=== PATIENT | female | born 1960 | race Caucasian/White ===

== ENCOUNTER 2019-01-13 20:28 | Inpatient (IN) | payer OTHER ==
[~2019-01-13] VITALS: Ht 157.5 cm; Wt 47.7 kg
--- NOTE | 2019-01-13 20:53 | PHYS DOC ---
Past Medical History Past Medical History: Asthma, Depression, GERD Past Surgical History: Cholecystectomy Alcohol Use: Occasionally Drug Use: None Adult General Chief Complaint Chief Complaint: NEAR SYNCOPE HPI HPI Patient is a 58 year old female with history of occasional asthma who presents with your syncopal episode, headache and dizziness. Symptoms happened after working outdoors doing light activity for 45 minutes. Patient reports feeling lightheaded with near syncope. Denies collapse. Falling episode patient did complain of headache described as dull radiating only as mild. Denies chest pain palpitations, shortness of breath. No fevers chills, nausea. Reports chronic bilateral shoulder pain, which is unchanged. Denies neck jaw or back pain. No urinary frequency urgency or burning. Patient is not diabetic. No history of hypoglycemia. No focal neurologic symptoms or deficits. No other acute symptoms or complaints. Prehospital EKG reviewed shows ST elevation in leads V1 through V4 with ST depression. Criteria for LVH present. Heart rate is 75/m, QTC is 432. Review of Systems Review of Systems View symptoms as per history of present illness. All other review symptoms are negative. All other systems were reviewed and found to be within normal limits, except as documented in this note. Current Medications Current Medications Current Medications Medications (Trade) Dose Ordered Sig/Adan Start Time Stop Time Status Last Admin Dose Admin Acetaminophen/ Hydrocodone Bitart (Lortab 5/325) 1 tab 1X ONCE 01/13/19 23:30 01/13/19 23:31 DC 01/13/19 23:37 1 TAB Ceftriaxone Sodium (Rocephin) 1 gm 1X ONCE 01/13/19 22:00 01/13/19 22:01 DC 01/13/19 22:16 1 GM Sodium Chloride 1,000 ml @ 100 mls/hr Q10H 01/13/19 23:30 01/14/19 23:29 Allergies Allergies Allergies Coded Allergies Type Severity Reaction Last Updated Verified No Known Drug Allergies 01/13/19 No Physical Exam Physical Exam Constitutional: Well developed, well nourished, no acute distress, non-toxic appearance. [] HENT: Normocephalic, atraumatic, bilateral external ears normal, oropharynx moist, no oral exudates, nose normal. [] Eyes: PERRLA, EOMI, conjunctiva normal, no discharge. [] Neck: Normal range of motion, no tenderness, supple, no stridor. [] Cardiovascular:Heart rate regular rhythm, no murmur [] Lungs & Thorax: Bilateral breath sounds clear to auscultation [] Abdomen: Bowel sounds normal, soft, no tenderness, no masses, no pulsatile masses. [] Skin: Warm, dry, no erythema, no rash. [] Back: No tenderness, no CVA tenderness. [] Extremities: No tenderness, no cyanosis, no clubbing, ROM intact, no edema. [] Neurologic: Alert and oriented X 3, normal motor function, normal sensory function, no focal deficits noted. [] Psychologic: Affect normal, judgement normal, mood normal. [] Current Patient Data Vital Signs Vital Signs Date Time Temp Pulse Resp B/P (MAP) Pulse Ox O2 Delivery O2 Flow Rate FiO2 01/13/19 23:37 18 98 Room Air 01/13/19 23:33 70 01/13/19 20:28 98.1 186/82 (116) 98.1 Lab Values Laboratory Tests Test 01/13/19 20:30 01/13/19 20:50 White Blood Count 9.1 x10^3/uL (4.0-11.0) Red Blood Count 4.24 x10^6/uL (3.50-5.40) Hemoglobin 13.6 g/dL (12.0-15.5) Hematocrit 38.6 % (36.0-47.0) Mean Corpuscular Volume 91 fL (79-100) Mean Corpuscular Hemoglobin 32 pg (25-35) Mean Corpuscular Hemoglobin Concent 35 g/dL (31-37) Red Cell Distribution Width 13.6 % (11.5-14.5) Platelet Count 355 x10^3/uL (140-400) Neutrophils (%) (Auto) 58 % (31-73) Lymphocytes (%) (Auto) 28 % (24-48) Monocytes (%) (Auto) 11 % (0-9) H Eosinophils (%) (Auto) 2 % (0-3) Basophils (%) (Auto) 1 % (0-3) Neutrophils # (Auto) 5.3 x10^3uL (1.8-7.7) Lymphocytes # (Auto) 2.6 x10^3/uL (1.0-4.8) Monocytes # (Auto) 1.0 x10^3/uL (0.0-1.1) Eosinophils # (Auto) 0.2 x10^3/uL (0.0-0.7) Basophils # (Auto) 0.1 x10^3/uL (0.0-0.2) Sodium Level 132 mmol/L (136-145) L Potassium Level 3.4 mmol/L (3.5-5.1) L Chloride Level 97 mmol/L (98-107) L Carbon Dioxide Level 28 mmol/L (21-32) Anion Gap 7 (6-14) Blood Urea Nitrogen 13 mg/dL (7-20) Creatinine 0.9 mg/dL (0.6-1.0) Estimated GFR (Cockcroft-Gault) 63.9 BUN/Creatinine Ratio 14 (6-20) Glucose Level 127 mg/dL (70-99) H Calcium Level 9.3 mg/dL (8.5-10.1) Total Bilirubin 0.4 mg/dL (0.2-1.0) Aspartate Amino Transferase (AST) 17 U/L (15-37) Alanine Aminotransferase (ALT) 21 U/L (14-59) Alkaline Phosphatase 94 U/L (46-116) Troponin I Quantitative < 0.017 ng/mL (0.000-0.055) Total Protein 6.4 g/dL (6.4-8.2) Albumin 3.8 g/dL (3.4-5.0) Albumin/Globulin Ratio 1.5 (1.0-1.7) Thyroid Stimulating Hormone (TSH) 6.308 uIU/mL (0.358-3.74) H Urine Collection Type Unknown Urine Color Yellow Urine Clarity Clear Urine pH 6.5 Urine Specific [place] 1.010 Urine Protein Negative mg/dL (NEG-TRACE) Urine Glucose (UA) Negative mg/dL (NEG) Urine Ketones (Stick) Negative mg/dL (NEG) Urine Blood Negative (NEG) Urine Nitrite Negative (NEG) Urine Bilirubin Negative (NEG) Urine Urobilinogen Dipstick 0.2 mg/dL (0.2 mg/dL) Urine Leukocyte Esterase Moderate (NEG) Urine RBC 1-2 /HPF (0-2) Urine WBC 1-4 /HPF (0-4) Urine Squamous Epithelial Cells Few /LPF Urine Bacteria 0 /HPF (0-FEW) Urine Hyaline Casts Occasional /HPF Urine Mucus Slight /LPF Laboratory Tests 01/13/19 20:30 Laboratory Tests 01/13/19 20:30 EKG EKG [EKG: reviewed] Radiology/Procedures Radiology/Procedures [CT head: reviewed CXR: NAD] Course & Med Decision Making Course & Med Decision Making Pertinent Labs and Imaging studies reviewed. (See chart for details) [Patient on imaging reviewed. UTI treated. EKG reviewed with bar attendant senior production planner. Will admit to the hospital service. Courtesy bridge orders provided.] Dragon Disclaimer Dragon Disclaimer This electronic medical record was generated, in whole or in part, using a voice recognition dictation system. Departure Departure Impression: Primary Impression: UTI (urinary tract infection) Additional Impressions: Syncope HTN (hypertension) Abnormal EKG Disposition: ADMITTED INPATIENT Condition: GOOD Problem Qualifiers BUTCH FLAHERTY DO Jan 13, 2019 20:53
[2019-01-13 20:58] LABS: BASO # 0.1 x10^3/uL (0.0-0.2); BASO % 1 % (0-3); EOS # 0.2 x10^3/uL (0.0-0.7); EOS % 2 % (0-3); HEMATOCRIT 38.6 % (36.0-47.0); HEMOGLOBIN 13.6 g/dL (12.0-15.5); LYMPH # 2.6 x10^3/uL (1.0-4.8); LYMPH % 28 % (24-48); MEAN CORPUSCULAR HEMOGLOBIN 32 pg (25-35); MEAN CORPUSCULAR HGB CONC 35 g/dL (31-37); MEAN CORPUSCULAR VOLUME 91 fL (79-100); MONO % 11 % (0-9); NEUT # 5.3 x10^3uL (1.8-7.7); NEUT % 58 % (31-73); PLATELET COUNT 355 x10^3/uL (140-400); RED BLOOD COUNT 4.24 x10^6/uL (3.50-5.40); RED CELL DISTRIBUTION WIDTH 13.6 % (11.5-14.5); WHITE BLOOD COUNT 9.1 x10^3/uL (4.0-11.0)
[2019-01-13 21:02] LABS: BILIRUBIN,URINE NEGATIVE (NEG); CLARITY,URINE CLEAR; COLOR,URINE YELLOW; NITRITE,URINE NEGATIVE (NEG); PH,URINE 6.5; PROTEIN,URINE NEGATIVE (NEG-TRACE); UROBILINOGEN,URINE 0.2 mg/dL (0.2 mg/dL)
[2019-01-13 21:03] LABS: CALCIUM 9.3 mg/dL (8.5-10.1); CREATININE 0.9 mg/dL (0.6-1.0); GFR 63.9; POTASSIUM 3.4 mmol/L (3.5-5.1)
[2019-01-13 21:09] LABS: ALBUMIN 3.8 g/dL (3.4-5.0); ALBUMIN/GLOBULIN RATIO 1.5 (1.0-1.7); TOTAL BILIRUBIN 0.4 mg/dL (0.2-1.0); TOTAL PROTEIN 6.4 g/dL (6.4-8.2)
--- NOTE | 2019-01-13 21:16 | RAD ---
EXAM: Chest, single view HISTORY: Dizziness. COMPARISON: None. FINDINGS: A frontal view of the chest is obtained. There is no infiltrate, pleural effusion or pneumothorax. The heart is normal in size. IMPRESSION: No acute pulmonary finding. Electronically signed by: Sandrine Young MD (01/13/2019 9:13 PM) [facility]
[2019-01-13 21:18] LABS: BACTERIA,URINE 0 /HPF (0-FEW); HYALINE CASTS, URINE OCCASIONAL /HPF; SQUAMOUS EPITHELIAL CELL,UR FEW /LPF
--- NOTE | 2019-01-13 21:23 | RAD ---
EXAM: Head CT without contrast. HISTORY: Dizziness. Headache. TECHNIQUE: Computed tomographic images of the head were obtained without contrast. *One or more of the following individualized dose reduction techniques were utilized for this examination: 1. Automated exposure control. 2. Adjustment of the mA and/or kV according to patient size. 3. Use of iterative reconstruction technique. COMPARISON: 03/23/2018. FINDINGS: There is no acute or subacute extra-axial or intraparenchymal hemorrhage. There is no mass effect or midline shift. There is no hydrocephalus. There is a new small focus of hyperdensity within the right butler radiata, the appearance of which favors a small chronic infarct. The guerrero-white matter differentiation pattern is intact. The visualized portions of the orbits, paranasal sinuses and mastoid air cells are unremarkable. No suspicious calvarial lesion is seen. IMPRESSION: 1. No acute intracranial finding. Note is made that MRI is more sensitive for acute infarction. 2. Small focus of hypodensity within the right butler radiata, the appearance of which favors a small chronic infarct. Electronically signed by: Sandrine Young MD (01/13/2019 9:20 PM) [facility]
[2019-01-13] MEDS ORDERED: cefTRIAXone IV Push 1 GM VIAL. IVP ONE (22:00)
[2019-01-13] MEDS ORDERED: HYDROcodone/APAP 5/325MG 1 TAB TABLET PO ONE (23:30)
[2019-01-14] VITALS (7 sets, daily range): BP systolic 141–165; BP diastolic 61–88
--- NOTE | 2019-01-14 00:27 | NUR ---
A 58 Y.O. FEMALE ADMITTED TO [facility], ALERT AND ORIENTED ACCOMPANIED BY . ASSESSMENT COMPLETE, PT AND ORIENTED TO UNIT, STAFF, EXPLAINED PLAN OF CARE. CALL LIGHT IN PLACE WILL CONTINUE TO MONITOR PT STATUS. PMRN
[2019-01-14] MEDS: IV NORMAL SALINE 1000ML BAG 1,000 ML IV SCH ×3 (01:36→21:40)
[2019-01-14] MEDS ORDERED: FLUT9.9S NS (03:00)
[2019-01-14] MEDS ORDERED: PANT20TA2 PO (03:00)
[2019-01-14] MEDS ORDERED: MULT-246 PO (03:00)
[2019-01-14] MEDS ORDERED: MINO100C PO (03:00)
[2019-01-14] MEDS ORDERED: VITA200T6 PO (03:00)
[2019-01-14] MEDS ORDERED: BUPR300T3 PO (03:00)
[2019-01-14] MEDS ORDERED: VENTOLIN HFA18 GM INH (03:00)
[2019-01-14] MEDS ORDERED: OMEG1CAP27 PO (03:00)
[2019-01-14] MEDS ORDERED: MELO7.5T29 PO (03:00)
[2019-01-14 06:24] LABS: ALBUMIN 3.2 g/dL (3.4-5.0); ALBUMIN/GLOBULIN RATIO 1.5 (1.0-1.7); CALCIUM 8.8 mg/dL (8.5-10.1); CREATININE 0.6 mg/dL (0.6-1.0); TOTAL BILIRUBIN 0.2 mg/dL (0.2-1.0); TOTAL PROTEIN 5.4 g/dL (6.4-8.2)
--- NOTE | 2019-01-14 07:13 | EKG ---
[facility] [address] [place] [address] Test Date: 2019-01-13 Test Time: 20:30:23 Pat Name: GIANNI FLOYD Department: Room: Gender: F Technology Assistant: : 1960 Requested By: BUTCH FLAHERTY Order Number: [id number] Reading MD: Measurements Intervals [place] Rate: 65 P: 28 IN: 190 QRS: 41 QRSD: 88 T: 46 QT: 400 QTc: 421 Interpretive Statements SINUS RHYTHM MODERATE AMPLITUDE CRITERIA FOR LVH QRS(T) CONTOUR ABNORMALITY CONSIDER ANTEROLATERAL MYOCARDIAL DAMAGE POSSIBLY ABNORMAL ECG No previous ECG available for comparison
--- NOTE | 2019-01-14 09:53 | PDOC1 ---
History and Physical Date of Admission Date of Admission DATE: 01/14/19 TIME: 09:52 Identification/Chief Complaint Chief Complaint near syncope Source Source: Chart review, Patient History of Present Illness History of Present Illness Ms. Askew ,is a 58 year old female admit s/p near syncope (syncope but was caught her and did not fall) without collapse at an outdoor event. she reports she had not slept well the night before,. it was 90 degrees out and she had "a couple cocktails" and she is not normally a drinker. At the time, she had a headache and dizziness, lightheaded with syncopal event chronic shoulder pain, sees Dr. Partida, had prior asthma EKG in er was concerning, ST change Past Medical History Cardiovascular: No pertinent hx Pulmonary: No pertinent hx Musculoskeletal: low back pain, Osteoarthritis ENT: No pertinent hx Renal/: No pertinent hx Endocrine: No pertinent hx Dermatology: No pertinent hx Past Surgical History Past Surgical History: No pertinent history Social History Smoke: <1 pack per day ALCOHOL: occassional Drugs: None Current Medications Current Medications Current Medications Ceftriaxone Sodium (Rocephin) 1 gm 1X ONCE IVP Last administered on 01/13/19at 22:16; Start 01/13/19 at 22:00; Stop 01/13/19 at 22:01; Status DC Acetaminophen/ Hydrocodone Bitart (Lortab 5/325) 1 tab 1X ONCE PO Last administered on 01/13/19at 23:37; Start 01/13/19 at 23:30; Stop 01/13/19 at 23:31; Status DC Sodium Chloride 1,000 ml @ 100 mls/hr Q10H IV Last administered on 01/14/19at 01:36; Start 01/13/19 at 23:30; Stop 01/14/19 at 23:29 Active Scripts Active Reported Vitamin E (Vitamin E Mixed) 200 Unit Tablet 200 Unit PO DAILY Fish Oil 1,000 Mg Softgel ([place]-3 Fatty Acids/Fish Oil) 1 Each Capsule 1 Each PO DAILY Multi-Vitamin Daily (Multivitamin) 1 Each Tablet 1 Each PO DAILY Ventolin Hfa Inhaler (Albuterol Sulfate) 18 Gm Hfa.aer.ad 2 Puff INH PRN Q4HRS PRN Flonase Allergy Relief (Fluticasone Propionate) 9.9 Ml Hasty.susp 2 Sprays NS DAILY Minocycline Hcl 100 Mg Capsule 100 Mg PO BID Wellbutrin Xl (Bupropion Hcl) 300 Mg Tab.er.24h 300 Mg PO DAILY Meloxicam 7.5 Mg Tablet 7.5 Mg PO DAILY Protonix (Pantoprazole Sodium) 20 Mg Tablet.dr 40 Mg PO DAILY Allergies Allergies: Coded Allergies: No Known Drug Allergies (Unverified , 01/13/19) ROS General: No: Chills, Night Sweats, Fatigue, Malaise, Appetite, Other PSYCHOLOGICAL ROS: YES: Sleep disturbances (night before); No: Anxiety, Behavioral Disorder, Concentration difficultie, Decreased libido, Depression, Disorientation, Hallucinations, Hostility, Irritablity, Memory difficulties, Mood Swings, Obsessive thoughts, Physical abuse, Sexual abuse, Suicidal ideation, Other Eyes: No Blurry vision, No Decreased vision, No Double vision, No Dry eyes, No Excessive tearing, No Eye Pain, No Itchy Eyes, No Loss of vision, No Photophobia, No Scotomata, No Uses contacts, No Uses glasses, No Other Hematological and Lymphatic: No: Bleeding Problems, Blood Clots, Blood Transfusions, Brusing, Night Sweats, Pallor, Swollen Lymph Nodes, Other Respiratory: No: Cough, Hemoptysis, Orthopnea, Pleuritic Pain, Shortness of breath, SOB with excertion, Sputum Changes, Stridor, Tachypnea, Wheezing, Other Cardiovascular: No Chest Pain, No Palpitations, No Orthopnea, No Paroxysmal Noc. Dyspnea, No Edema, No Lt Headedness, No Other Genitourinary: No Dysuria, No Frequency, No Incontinence, No Hematuria, No Retention, No Discharge, No Urgency, No Pain, No Flank Pain, No Other, No , No , No , No , No , No , No Musculoskeletal: No Gait Disturbance, No Joint Pain, No Joint Stiffness, No J oint Swelling, No Muscle Pain, No Muscular Weakness, No Pain In:, No Swelling In:, No Other Neurological: No Behavorial Changes, No Bowel/Bladder ControlChng, No Confusion, No Dizziness, No Gait Disturbance, No Headaches, No Impaired Coord/balance, No Memory Loss, No Numbness/Tingling, No Seizures, No Speech Problems, No Tremors, No Visual Changes, No Weakness, No Other Skin: No Dry Skin, No Eczema, No Hair Changes, No Lumps, No Mole Changes, No Mottling, No Nail Changes, No Pruritus, No Rash, No Skin Lesion Changes, No Other, No Acne Physical Exam General: Alert, Oriented X3, Cooperative, No acute distress HEENT: Atraumatic, PERRLA, Mucous membr. moist/pink Lungs: Clear to auscultation, Normal air movement Heart: S1S2, no gallops, no murmurs Abdomen: Normal bowel sounds, Soft Rectal Exam: not examined Extremities: No cyanosis, No edema, Normal pulses Skin: No breakdown, No significant lesion Neuro: Normal gait, Normal speech, Normal tone, Sensation intact Psych/Mental Status: Mental status NL, Mood NL Vitals Vitals Vital Signs Date Time Temp Pulse Resp B/P (MAP) Pulse Ox O2 Delivery O2 Flow Rate FiO2 01/14/19 07:45 Room Air 01/14/19 07:00 98.4 65 13 149/66 (93) 97 98.4 Labs Labs Laboratory Tests Test 01/13/19 20:30 01/13/19 20:50 01/14/19 02:25 01/14/19 05:15 White Blood Count 9.1 x10^3/uL (4.0-11.0) Red Blood Count 4.24 x10^6/uL (3.50-5.40) Hemoglobin 13.6 g/dL (12.0-15.5) Hematocrit 38.6 % (36.0-47.0) Mean Corpuscular Volume 91 fL (79-100) Mean Corpuscular Hemoglobin 32 pg (25-35) Mean Corpuscular Hemoglobin Concent 35 g/dL (31-37) Red Cell Distribution Width 13.6 % (11.5-14.5) Platelet Count 355 x10^3/uL (140-400) Neutrophils (%) (Auto) 58 % (31-73) Lymphocytes (%) (Auto) 28 % (24-48) Monocytes (%) (Auto) 11 % (0-9) Eosinophils (%) (Auto) 2 % (0-3) Basophils (%) (Auto) 1 % (0-3) Neutrophils # (Auto) 5.3 x10^3uL (1.8-7.7) Lymphocytes # (Auto) 2.6 x10^3/uL (1.0-4.8) Monocytes # (Auto) 1.0 x10^3/uL (0.0-1.1) Eosinophils # (Auto) 0.2 x10^3/uL (0.0-0.7) Basophils # (Auto) 0.1 x10^3/uL (0.0-0.2) Sodium Level 132 mmol/L (136-145) 139 mmol/L (136-145) Potassium Level 3.4 mmol/L (3.5-5.1) 4.0 mmol/L (3.5-5.1) Chloride Level 97 mmol/L (98-107) 103 mmol/L (98-107) Carbon Dioxide Level 28 mmol/L (21-32) 28 mmol/L (21-32) Anion Gap 7 (6-14) 8 (6-14) Blood Urea Nitrogen 13 mg/dL (7-20) 13 mg/dL (7-20) Creatinine 0.9 mg/dL (0.6-1.0) 0.6 mg/dL (0.6-1.0) Estimated GFR (Cockcroft-Gault) 63.9 102.0 BUN/Creatinine Ratio 14 (6-20) 22 (6-20) Glucose Level 127 mg/dL (70-99) 99 mg/dL (70-99) Calcium Level 9.3 mg/dL (8.5-10.1) 8.8 mg/dL (8.5-10.1) Total Bilirubin 0.4 mg/dL (0.2-1.0) 0.2 mg/dL (0.2-1.0) Aspartate Amino Transf (AST/SGOT) 17 U/L (15-37) 18 U/L (15-37) Alanine Aminotransferase (ALT/SGPT) 21 U/L (14-59) 19 U/L (14-59) Alkaline Phosphatase 94 U/L (46-116) 88 U/L (46-116) Troponin I Quantitative < 0.017 ng/mL (0.000-0.055) < 0.017 ng/mL (0.000-0.055) < 0.017 ng/mL (0.000-0.055) Total Protein 6.4 g/dL (6.4-8.2) 5.4 g/dL (6.4-8.2) Albumin 3.8 g/dL (3.4-5.0) 3.2 g/dL (3.4-5.0) Albumin/Globulin Ratio 1.5 (1.0-1.7) 1.5 (1.0-1.7) Thyroid Stimulating Hormone (TSH) 6.308 uIU/mL (0.358-3.74) Urine Collection Type Unknown Urine Color Yellow Urine Clarity Clear Urine pH 6.5 Urine Specific [place] 1.010 Urine Protein Negative mg/dL (NEG-TRACE) Urine Glucose (UA) Negative mg/dL (NEG) Urine Ketones (Stick) Negative mg/dL (NEG) Urine Blood Negative (NEG) Urine Nitrite Negative (NEG) Urine Bilirubin Negative (NEG) Urine Urobilinogen Dipstick 0.2 mg/dL (0.2 mg/dL) Urine Leukocyte Esterase Moderate (NEG) Urine RBC 1-2 /HPF (0-2) Urine WBC 1-4 /HPF (0-4) Urine Squamous Epithelial Cells Few /LPF Urine Bacteria 0 /HPF (0-FEW) Urine Hyaline Casts Occasional /HPF Urine Mucus Slight /LPF Laboratory Tests Test 01/13/19 20:30 01/13/19 20:50 01/14/19 02:25 01/14/19 05:15 White Blood Count 9.1 x10^3/uL (4.0-11.0) Red Blood Count 4.24 x10^6/uL (3.50-5.40) Hemoglobin 13.6 g/dL (12.0-15.5) Hematocrit 38.6 % (36.0-47.0) Mean Corpuscular Volume 91 fL (79-100) Mean Corpuscular Hemoglobin 32 pg (25-35) Mean Corpuscular Hemoglobin Concent 35 g/dL (31-37) Red Cell Distribution Width 13.6 % (11.5-14.5) Platelet Count 355 x10^3/uL (140-400) Neutrophils (%) (Auto) 58 % (31-73) Lymphocytes (%) (Auto) 28 % (24-48) Monocytes (%) (Auto) 11 % (0-9) Eosinophils (%) (Auto) 2 % (0-3) Basophils (%) (Auto) 1 % (0-3) Neutrophils # (Auto) 5.3 x10^3uL (1.8-7.7) Lymphocytes # (Auto) 2.6 x10^3/uL (1.0-4.8) Monocytes # (Auto) 1.0 x10^3/uL (0.0-1.1) Eosinophils # (Auto) 0.2 x10^3/uL (0.0-0.7) Basophils # (Auto) 0.1 x10^3/uL (0.0-0.2) Sodium Level 132 mmol/L (136-145) 139 mmol/L (136-145) Potassium Level 3.4 mmol/L (3.5-5.1) 4.0 mmol/L (3.5-5.1) Chloride Level 97 mmol/L (98-107) 103 mmol/L (98-107) Carbon Dioxide Level 28 mmol/L (21-32) 28 mmol/L (21-32) Anion Gap 7 (6-14) 8 (6-14) Blood Urea Nitrogen 13 mg/dL (7-20) 13 mg/dL (7-20) Creatinine 0.9 mg/dL (0.6-1.0) 0.6 mg/dL (0.6-1.0) Estimated GFR (Cockcroft-Gault) 63.9 102.0 BUN/Creatinine Ratio 14 (6-20) 22 (6-20) Glucose Level 127 mg/dL (70-99) 99 mg/dL (70-99) Calcium Level 9.3 mg/dL (8.5-10.1) 8.8 mg/dL (8.5-10.1) Total Bilirubin 0.4 mg/dL (0.2-1.0) 0.2 mg/dL (0.2-1.0) Aspartate Amino Transf (AST/SGOT) 17 U/L (15-37) 18 U/L (15-37) Alanine Aminotransferase (ALT/SGPT) 21 U/L (14-59) 19 U/L (14-59) Alkaline Phosphatase 94 U/L (46-116) 88 U/L (46-116) Troponin I Quantitative < 0.017 ng/mL (0.000-0.055) < 0.017 ng/mL (0.000-0.055) < 0.017 ng/mL (0.000-0.055) Total Protein 6.4 g/dL (6.4-8.2) 5.4 g/dL (6.4-8.2) Albumin 3.8 g/dL (3.4-5.0) 3.2 g/dL (3.4-5.0) Albumin/Globulin Ratio 1.5 (1.0-1.7) 1.5 (1.0-1.7) Thyroid Stimulating Hormone (TSH) 6.308 uIU/mL (0.358-3.74) Urine Collection Type Unknown Urine Color Yellow Urine Clarity Clear Urine pH 6.5 Urine Specific [place] 1.010 Urine Protein Negative mg/dL (NEG-TRACE) Urine Glucose (UA) Negative mg/dL (NEG) Urine Ketones (Stick) Negative mg/dL (NEG) Urine Blood Negative (NEG) Urine Nitrite Negative (NEG) Urine Bilirubin Negative (NEG) Urine Urobilinogen Dipstick 0.2 mg/dL (0.2 mg/dL) Urine Leukocyte Esterase Moderate (NEG) Urine RBC 1-2 /HPF (0-2) Urine WBC 1-4 /HPF (0-4) Urine Squamous Epithelial Cells Few /LPF Urine Bacteria 0 /HPF (0-FEW) Urine Hyaline Casts Occasional /HPF Urine Mucus Slight /LPF VTE Prophylaxis Ordered VTE Prophylaxis Devices: No VTE Pharmacological Prophylaxi: No Assessment/Plan Assessment/Plan syncope after a few cocktails, not normally a drinker UTI abdnormal EKG, r/o acs echo cardiogram ordered minimal tobacco use, cessation recommended TOMY MADRIGAL MD Jan 14, 2019 09:53
[2019-01-14] MEDS ORDERED: ALBUTEROL SULFATE 2.5 MG/3 ML NEBU. NEB PRN (10:00)
[2019-01-14 10:46] LABS: CHOLESTEROL/HDL RATIO 4.5
--- NOTE | 2019-01-14 11:03 | PDOC2 ---
CARDIAC CONSULT DATE OF CONSULT Date of Consult DATE: 01/14/19 TIME: 10:59 REASON FOR CONSULT Reason for Consult: abnormal EKG, near syncope REFERRING PHYSICIAN Referring Physician: Trace SOURCE Source: Chart review, Patient HISTORY OF PRESENT ILLNESS HISTORY OF PRESENT ILLNESS This ia pleasant 58 yo female admitted for complains of dizziness. Reports that yesterday she was very busy with work and multiple engagements. She attended at a green party and had cocktail drink and some food with cheese/crackers and 45 minutes later standing she started feeling dizzy like she was going to faint without vertigo, no slurred speech or any facial droop, felt sweaty and weak and someone helped her sit and her symptoms lasted about 15 minutes. She was also nauseated at that time but no palpitations but did felt some chest fullness like congestion but none further afterwards. This happened much briefly a while back. No associated tinnitus, unilateral weakness but did started having bifrontal [place] throbbing a little later which lasted overnight. Denies any previous migraine, falls or any injury. No hx of heart disease nor CVA nor arrhythmias. PAST MEDICAL HISTORY Cardiovascular: No pertinent hx Pulmonary: Asthma, Pneumonia CENTRAL NERVOUS SYSTEM: Other (No pertinent history) GI: GERD Heme/Onc: No pertinent hx Hepatobiliary: Cholelithiasis Psych: Anxiety Musculoskeletal: Osteoarthritis Rheumatologic: No pertinent hx Infectious disease: No pertinent hx ENT: No pertinent hx Renal/: No pertinent hx Endocrine: No pertinent hx Dermatology: Other (facial rash better with minocycline) PAST SURGICAL HISTORY Past Surgical History: Cholecystectomy FAMILY HISTORY Family History noncontributory to CV SOCIAL HISTORY Smoke: <1 pack per day (>40 yrs) ALCOHOL: occassional CURRENT MEDICATIONS CURRENT MEDICATIONS Current Medications Medications (Trade) Dose Ordered Sig/Adan Route PRN Reason Start Time Stop Time Status Last Admin Dose Admin Ceftriaxone Sodium (Rocephin) 1 gm 1X ONCE IVP 01/13/19 22:00 01/13/19 22:01 DC 01/13/19 22:16 Acetaminophen/ Hydrocodone Bitart (Lortab 5/325) 1 tab 1X ONCE PO 01/13/19 23:30 01/13/19 23:31 DC 01/13/19 23:37 Sodium Chloride 1,000 ml @ 100 mls/hr Q10H IV 01/13/19 23:30 01/14/19 23:29 01/14/19 01:36 ALLERGIES ALLERGIES: Coded Allergies: No Known Drug Allergies (Unverified , 01/13/19) ROS Review of System 14 point ROS evaluated with pertinent positives noted per HPI PHYSICAL EXAM General: Alert, Oriented X3, Cooperative, No acute distress HEENT: Atraumatic, Mucous membr. moist/pink Lungs: Clear to auscultation, Normal air movement Heart: Regular rate (SR), Normal S1, Normal S2, No murmurs Abdomen: Soft, No tenderness Extremities: No cyanosis, No edema Skin: No breakdown, No significant lesion Neuro: Normal speech, Sensation intact Psych/Mental Status: Mental status NL, Mood NL MUSCULOSKELETAL: Osteoarthritic changes both hands VITALS VITALS Vital Signs Date Time Temp Pulse Resp B/P (MAP) Pulse Ox O2 Delivery O2 Flow Rate FiO2 01/14/19 10:41 98.1 65 16 141/74 (96) 98 Room Air 98.1 LABS Lab: Laboratory Tests Test 01/13/19 20:30 01/13/19 20:50 01/14/19 02:25 01/14/19 05:15 White Blood Count 9.1 x10^3/uL (4.0-11.0) Red Blood Count 4.24 x10^6/uL (3.50-5.40) Hemoglobin 13.6 g/dL (12.0-15.5) Hematocrit 38.6 % (36.0-47.0) Mean Corpuscular Volume 91 fL (79-100) Mean Corpuscular Hemoglobin 32 pg (25-35) Mean Corpuscular Hemoglobin Concent 35 g/dL (31-37) Red Cell Distribution Width 13.6 % (11.5-14.5) Platelet Count 355 x10^3/uL (140-400) Neutrophils (%) (Auto) 58 % (31-73) Lymphocytes (%) (Auto) 28 % (24-48) Monocytes (%) (Auto) 11 % (0-9) Eosinophils (%) (Auto) 2 % (0-3) Basophils (%) (Auto) 1 % (0-3) Neutrophils # (Auto) 5.3 x10^3uL (1.8-7.7) Lymphocytes # (Auto) 2.6 x10^3/uL (1.0-4.8) Monocytes # (Auto) 1.0 x10^3/uL (0.0-1.1) Eosinophils # (Auto) 0.2 x10^3/uL (0.0-0.7) Basophils # (Auto) 0.1 x10^3/uL (0.0-0.2) Sodium Level 132 mmol/L (136-145) 139 mmol/L (136-145) Potassium Level 3.4 mmol/L (3.5-5.1) 4.0 mmol/L (3.5-5.1) Chloride Level 97 mmol/L (98-107) 103 mmol/L (98-107) Carbon Dioxide Level 28 mmol/L (21-32) 28 mmol/L (21-32) Anion Gap 7 (6-14) 8 (6-14) Blood Urea Nitrogen 13 mg/dL (7-20) 13 mg/dL (7-20) Creatinine 0.9 mg/dL (0.6-1.0) 0.6 mg/dL (0.6-1.0) Estimated GFR (Cockcroft-Gault) 63.9 102.0 BUN/Creatinine Ratio 14 (6-20) 22 (6-20) Glucose Level 127 mg/dL (70-99) 99 mg/dL (70-99) Calcium Level 9.3 mg/dL (8.5-10.1) 8.8 mg/dL (8.5-10.1) Total Bilirubin 0.4 mg/dL (0.2-1.0) 0.2 mg/dL (0.2-1.0) Aspartate Amino Transf (AST/SGOT) 17 U/L (15-37) 18 U/L (15-37) Alanine Aminotransferase (ALT/SGPT) 21 U/L (14-59) 19 U/L (14-59) Alkaline Phosphatase 94 U/L (46-116) 88 U/L (46-116) Troponin I Quantitative < 0.017 ng/mL (0.000-0.055) < 0.017 ng/mL (0.000-0.055) < 0.017 ng/mL (0.000-0.055) Total Protein 6.4 g/dL (6.4-8.2) 5.4 g/dL (6.4-8.2) Albumin 3.8 g/dL (3.4-5.0) 3.2 g/dL (3.4-5.0) Albumin/Globulin Ratio 1.5 (1.0-1.7) 1.5 (1.0-1.7) Thyroid Stimulating Hormone (TSH) 6.308 uIU/mL (0.358-3.74) Urine Collection Type Unknown Urine Color Yellow Urine Clarity Clear Urine pH 6.5 Urine Specific [place] 1.010 Urine Protein Negative mg/dL (NEG-TRACE) Urine Glucose (UA) Negative mg/dL (NEG) Urine Ketones (Stick) Negative mg/dL (NEG) Urine Blood Negative (NEG) Urine Nitrite Negative (NEG) Urine Bilirubin Negative (NEG) Urine Urobilinogen Dipstick 0.2 mg/dL (0.2 mg/dL) Urine Leukocyte Esterase Moderate (NEG) Urine RBC 1-2 /HPF (0-2) Urine WBC 1-4 /HPF (0-4) Urine Squamous Epithelial Cells Few /LPF Urine Bacteria 0 /HPF (0-FEW) Urine Hyaline Casts Occasional /HPF Urine Mucus Slight /LPF Triglycerides Level 138 mg/dL (0-150) Cholesterol Level 202 mg/dL (0-200) LDL Cholesterol, Calculated 129 mg/dL (0-100) VLDL Cholesterol, Calculated 28 mg/dL (0-40) Non-HDL Cholesterol Calculated 157 mg/dL (0-129) HDL Cholesterol 45 mg/dL (40-60) Cholesterol/HDL Ratio 4.5 ASSESSMENT/PLAN ASSESSMENT/PLAN 1. Presyncope: could be arrhythmia related. occasional PVC with abnormal EKG with LVH. Biphasix presentation to [facility] 2. Chest pain: trops normal. mixed features. No further recurrence. 3. Possible UTI 4. Tobaccoism with suspected COPD 5. Mild HLP 6. Subclinical hypothyroidism 7. Possible past CVA: incidental finding per CT Recommendations 1. Carotid doppler, TTE. 2. MCOT as an outpt. Will need ischemic workup given her significant risk factors and abnormal EKG, outpt vs inpt, Will discuss with primary educational aide. 3. Encouraged HBPM for further need of HTN meds. 4. Start on ASA and lipitor. 5. Smoking cessation ANUM GUEVARA APRN Jan 14, 2019 11:03
--- NOTE | 2019-01-14 11:54 | EKG ---
[facility] [address] [place] [address] Test Date: 2019-01-14 Test Time: 11:50:47 Pat Name: GIANNI FLOYD Department: Room: 201 1 Gender: F Assistant Production Editor: NADIA : 1960 Requested By: TOMY MADRIGAL Order Number: [id number] Reading MD: Measurements Intervals [place] Rate: 64 P: 64 W[place]: 192 QRS: 66 QRSD: 76 T: 64 QT: 410 QTc: 423 Interpretive Statements SINUS RHYTHM LEFT ATRIAL ABNORMALITY T ABNORMALITY IN ANTEROSEPTAL LEADS ABNORMAL ECG RI6.01 Unconfirmed report No previous ECG available for comparison
--- NOTE | 2019-01-14 12:10 | CARD ---
MR#: [id number] Date of Study: 01/14/2019 Ordering Physician: ANUM GUEVARA, Referring Physician: GINA OLIVIER Tech: Isi Bedolla APPROVED REPORT EXAM: Two-dimensional and M-mode echocardiogram with Doppler and color Doppler. Other Information Quality : GoodHR: 60bpm INDICATION COPD Syncope RISK FACTORS Hypertension Smoking Asthma 2D DIMENSIONS RVDd2.5 (2.9-3.5cm)Left Atrium(2D)2.5 (1.6-4.0cm) IVSd0.8 (0.7-1.1cm)Aortic Root(2D)2.9 (2.0-3.7cm) LVDd4.2 (3.9-5.9cm)LVOT Diameter1.9 (1.8-2.4cm) PWd0.9 (0.7-1.1cm)LVDs2.4 (2.5-4.0cm) FS (%) 43.2 %SV58.7 ml LVEF(%)74.8 (>50%) Aortic Valve AoV Peak Win.141.0cm/sAoV VTI33.3cm AO Peak GR.8.0mmHgLVOT Peak Win.116.3cm/s AO Mean GR.5mmHgAVA (VMAX)2.30cm2 Mitral Valve MV E Yogwnyij84.5cm/sMV DECEL IEMZ462go MV A Jaxkvljf61.7cm/sE/A Ratio1.2 Pulmonary Valve PV Peak Fvftbeod83.7cm/s Tricuspid Valve TR P. Tpgeygsw029yq/sRAP [id number] TR Peak Gr.69qqZeJBXV95gtBw Pulmonary Vein S1 Hsxzpymo44.3cm/sD2 Ehahnwht98.9cm/s PVa [id number] LEFT VENTRICLE The left ventricle is normal size. There is normal left ventricular wall thickness. The left ventricu lar systolic function is normal. The Ejection Fraction is 60-65%. There is normal LV segmental wall m otion. RIGHT VENTRICLE The right ventricle is normal size. There is normal right ventricular wall thickness. The right ventr icular systolic function is normal. ATRIA The left atrium size is normal. The right atrium size is normal. The interatrial septum is intact wit h no evidence for an atrial septal defect or patent foramen ovale as noted on 2-D or Doppler imaging. AORTIC VALVE The aortic valve is normal in structure and function. Doppler and Color Flow revealed no significant aortic regurgitation. There is no significant aortic valvular stenosis. MITRAL VALVE The mitral valve is normal in structure and function. There is no evidence of mitral valve prolapse. There is no mitral valve stenosis. Doppler and Color Flow revealed no mitral valve regurgitation note d. TRICUSPID VALVE The tricuspid valve is normal in structure and function. Doppler and Color Flow revealed trace tricus pid regurgitation with an estimated PAP of 24 mmHg. There is no tricuspid valve stenosis. PULMONIC VALVE The pulmonic valve is not well visualized. Doppler and Color Flow revealed no pulmonic valvular regur gitation. GREAT VESSELS The aortic root is normal in size. The IVC is normal in size and collapses >50% with inspiration. PERICARDIAL EFFUSION There is no evidence of significant pericardial effusion. Critical Notification Critical Value: No <Conclusion> The left ventricular systolic function is normal. The Ejection Fraction is 60-65%. There is normal LV segmental wall motion. Trace tricuspid regurgitation with an estimated PAP of 24 mmHg. There is no evidence of significant pericardial effusion. Signed by : Josr Velazquez, Electronically Approved : 01/14/2019 12:10:06
--- NOTE | 2019-01-14 12:18 | NUR ---
SS following for discharge planning. SS reviewed pt chart. Pt is from home with spouse and is currently on room air. No discharge needs notes at this time. SS will continue to follow for discharge planning.
[2019-01-14] MEDS: MELOXICAM 7.5 MG TABLET PO SCH (12:40)
[2019-01-14] MEDS: PANTOPRAZOLE 40 MG TABLET.DR. PO SCH (12:40)
[2019-01-14] MEDS: MULTIVITAMIN with MINERAL TABLET. PO SCH (12:40)
[2019-01-14] MEDS: ASPIRIN ENTERIC COATED 81 MG TABLET.DR. PO SCH (12:40)
[2019-01-14] MEDS: buPROPion XL 150 MG TAB.ER.24H. PO SCH (12:41)
[2019-01-14] MEDS: FLUTICASONE 50MCG/NASAL SPRAY 16GM BOTTLE. NS SCH (12:42)
--- NOTE | 2019-01-14 15:37 | NUR ---
SS following up on referral regarding "pt wants info on advanced directives." SS met with pt and family in room and provided information on advanced directives. Pt and family accepted information.
--- NOTE | 2019-01-14 16:35 | RAD ---
MR#: [id number] Date of Study: 01/14/2019 Ordering Physician: ANUM GUEVARA, Referring Physician: GINA OLIVIER Tech: Michael Flores MBA, RDMS, RVT, RDCS, RTR APPROVED REPORT Patient Location: IN-PATIENT Laterality:Bilateral Indications Syncope Doppler Spectral Velocity Analysis Right Left pCCA 98/18 cm/spCCA 105/26 cm/s mCCA 77/18 cm/smCCA 106/29 cm/s dCCA 72/18 cm/sdCCA 93/29 cm/s Bulb 58/17 cm/sBulb 74/24 cm/s ECA 71/ cm/sECA 107/ cm/s pICA 140/43 cm/spICA 83/27 cm/s Navjot 125/44 cm/smICA 115/24 cm/s dICA 95/24 cm/sdICA 97/40 cm/s Vert. 67/ cm/sVert. 83/ cm/s Subcl. 72/ cm/sSubcl. 125/ cm/s ICA/CCA 1.43ICA/CCA 1.10 Findings Grayscale images of the bilateral carotid arterial vessels demonstrate mild intimal hyperplasia. Ther e is mild to moderate nonobstructive plaque greater on the right than the left at the level of the ca rotid bulbs. On the right spectral waveforms and color Doppler in the common carotid and external carotid vessels are within normal limits. The proximal and mid internal carotid arteries demonstrated a 50-69% stenos is based on velocity criteria. ICA to CCA ratios are mildly elevated at 1.8 on the right side. The ve rtebral velocities are antegrade on the right side and within normal limits. Subclavian velocities ar e also within normal limits On the left velocities in the proximal mid and distal common/internal carotid vessels are within norm al limits overall suggestive 0 to less than 50% stenosis. The left external carotid velocities are al so within normal limits. ICA to CCA ratios are grossly within normal limits. Left vertebral velocity and subclavian velocities are within normal limits. Critical Notification Critical Value: No <Conclusion> 1. Moderate right-sided carotid arterial disease, otherwise grossly unremarkable Signed by : Fahad Little, Electronically Approved : 01/14/2019 16:34:45
[2019-01-14] MEDS ORDERED: ATORVASTATIN CALCIUM 10 MG TABLET. PO SCH (21:00)
[2019-01-14] MEDS ORDERED: cefTRIAXone IV Push 1 GM VIAL. IVP SCH (22:00)
[2019-01-14] MEDS ORDERED: ZOLPIDEM 5 MG TABLET. PO PRN (22:30)
[2019-01-15 02:06] VITALS: BP 151/76
[2019-01-15 07:15] VITALS: BP 140/64
[2019-01-15] MEDS ORDERED: LACTOBACILLUS RHAMNOSUS GG 1 CAPSULE. PO SCH (09:00)
--- NOTE | 2019-01-15 09:50 | PDOC ---
CARDIO Progress Notes Date and Time Date of Service 01/15/2019 Time of Evaluation 0945 Subjective Subjective: No Chest Pain, No shortness of breath, No Palpitations Vitals Vitals Vital Signs Date Time Temp Pulse Resp B/P (MAP) Pulse Ox O2 Delivery O2 Flow Rate FiO2 01/15/19 08:00 Room Air 01/15/19 07:15 97.7 60 16 140/64 (89) 97.7 01/15/19 02:06 97 Weight Weight [ ] Input and Output Intake and Output Intake and Output 01/15/19 06:59 Intake Total 1500 ml Output Total 3750 ml Balance -2250 ml Intake Oral 1500 ml Output Urine Total 3750 ml # Voids 1 Physical Exam HEENT: Neck Supple W Full Motion Chest: Symmetric LUNGS: Clear to Auscultation Heart: S1S2, RRR (SR), no murmurs Abdomen: Soft N/T Extremities: No Edema, No Calf Tenderness Neurology: alert, oriented, follow commands Assessment Assessment 1. Presyncope: could be arrhythmia related. EF and WM nml 2. Chest pain: trops normal. mixed features. Abn EKG 3. Tobaccoism with suspected COPD 4. Mild HLP 5. Subclinical hypothyroidism 6. Possible past CVA: incidental finding per CT 7. Moderate right carotid artery disease Recommendations 1. Treadmill MPI today 2. MCOT as an outpt. 3. Encouraged HBPM for further need of HTN meds. 4. ASA and lipitor. 5. Smoking cessation ANUM GUEVARA APRN Jan 15, 2019 09:50
[2019-01-15] MEDS: MULTIVITAMIN with MINERAL TABLET. PO SCH (09:53)
[2019-01-15] MEDS: buPROPion XL 150 MG TAB.ER.24H. PO SCH (09:53)
[2019-01-15] MEDS: ASPIRIN ENTERIC COATED 81 MG TABLET.DR. PO SCH (09:54)
[2019-01-15] MEDS: PANTOPRAZOLE 40 MG TABLET.DR. PO SCH (09:54)
[2019-01-15] MEDS: MELOXICAM 7.5 MG TABLET PO SCH (09:54)
[2019-01-15] MEDS: FLUTICASONE 50MCG/NASAL SPRAY 16GM BOTTLE. NS SCH (09:54)
[2019-01-15 10:40] VITALS: BP 138/70
--- NOTE | 2019-01-15 11:25 | RAD ---
MR#: [id number] Date of Study: 01/15/2019 Ordering Physician: ANUM GUEVARA, Referring Physician: MIRANDA HOU Tech: RT Kehinde (R) (N) APPROVED REPORT Test Type: Exercise Stress Nurse/Tech: Evonne Senior R.N. Test Indications: chest pain Cardiac History: Family history, smoker Medications: See Electronic Medical Record Medical History: See Electronic Medical Record Resting ECG: NSR Resting Heart Rate: 68 bpm Resting Blood Pressure: 132/53mmHg Pretest Chest Pain: No chest pain Nurse/Tech Notes S1S2, lungs sound clear Consent: The procedure was explained to the patient in lay terms. Informed consent was witnessed. Cesar eout was entered into [employer]. History and Stress Test performed by Evonne Senior R.N. Stress Symptoms Fatigue, Dyspnea POST EXERCISE Reason for Termination: Reached target heart rate Target HR: 136 Max HR: 156 bpm Exercise duration: 3min. 48 sec min:sec, 2 Stage Max Blood Pressure: 198/72mmHg Blood Pressure response to exercise: Normal blood pressure response during stress. Chest Pain: No. Arrhythmia: Yes. occ PVC during recovery ST Change: Yes. INTERPRETATION Stress EKG Conclusion: Baseline EKG with SR and LVH Stress EKG with non-specific [address] segment depression in the anterolateral leads. Imaging Protocol IMAGE PROTOCOL: Rest Tc-99m/stress Tc-99m 1 day Rest: Stress: Viability: Radiopharm.Tc99m WpptlecfcAy37r Sestamibi Dose11.4mCi 32.3mCi Duration 13min. 13min. Img Date 01/15/2019 01/15/2019 Inj-Img Dcnw03qce. 60min. Rest Admin Site:IV - Left AntecubitalAdministrator:CONSUELO Archer Stress Admin Site: IV - Left AntecubitalAdministrator: CONSUELO Archer STRESS DATA End Diast. Vol.64.0mlLVEDV index BSA43.0ml End Syst. Vol.10.0mlLVESV index BSA7.0ml Myocardial Hrga647.0gEject. Rwihbwbp47.0% Stress Scores Regional WT0.00Summed WT1.00 Regional WM0.00Summed WM1.00 The rest and stress images show normal perfusion, normal contraction and thickening. LV Perf. Quant 17 Seg. SSS0.00 17 Seg. SRS0.00 17 Seg. SDS0.00 Stress Defect Extent (% LAD)0.00Rest Defect Extent (% LAD)0.00Rev. Defect Extent (% LAD)0.00 Stress Defect Extent (% LCX) 0.00Rest Defect Extent (% LCX)0.00Rev. Defect Extent (% LCX)0.00 Stress Defect Extent (% RCA)0.00Rest Defect Extent (% RCA)0.00Rev. Defect Extent (% RCA)0.00 Stress Defect Extent (% BOOKER)0.00Rest Defect Extent (% BOOKER)0.00Rev. Defect Extent (% BOOKER)0.00 Other Information Quality:Good Risk Assessment: Low Risk Conclusion 1. Abnormal EKG response with baseline SR and LVH, stress EKG suggestive mild anterolateral ischemia at peak stress. 2. Hypertensive BP response. 10 Mets achieved. 3. Normal perfusion at stress/rest. 4. Normal EF at > 70% 5. Low risk study Signed by : Fahad Little, Electronically Approved : 01/15/2019 11:25:04
[2019-01-15] MEDS ORDERED: ASPI-612 PO (13:18)
[2019-01-15] MEDS ORDERED: ATOR10TA60 PO (13:18)
[2019-01-15] MEDS ORDERED: CEPH-263 PO (13:18)
[2019-01-15 15:00] VITALS: BP 174/68
--- NOTE | 2019-01-15 15:57 | NUR ---
Discharge Note: GIANNI FLOYD [place] Discharge instructions and discharge home medications reviewed with Patient and a copy given. All questions have been answered and understanding verbalized. The following instructions and handouts were given: Syncope, hypertension,UTI, stress test, ECHO, event monitor, smoking cessation. Discontinued lines and drains: Peripheral IV removed. Catheter tip in-tact. Dressing applied. Patient discharged to Home or Self Care with Spouse via Ambulated
[2019-01-15] MEDS ORDERED: ATORVASTATIN CALCIUM 10 MG TABLET. PO SCH (21:00)
== END 2019-01-15 15:25 | disposition home or self-care (01) | DRG 690 ==
LOC: ER 20:28 → 2 NORTH 22:30
PROVIDERS: ADMIT Internal Medicine; ATTEND Internal Medicine
DX: N39.0 Urinary tract infection, site not specified (principal); I49.9 Cardiac arrhythmia, unspecified; E03.9 Hypothyroidism, unspecified; E78.5 Hyperlipidemia, unspecified; F17.210 Nicotine dependence, cigarettes, uncomplicated; G89.29 Other chronic pain; I10 Essential (primary) hypertension; J44.9 Chronic obstructive pulmonary disease, unspecified; K21.9 Gastro-esophageal reflux disease without esophagitis; F32.9 Major depressive disorder, single episode, unspecified; F41.9 Anxiety disorder, unspecified; M19.90 Unspecified osteoarthritis, unspecified site; Z87.01 Personal history of pneumonia (recurrent)
CPT/HCPCS: 36415; 70450; 71045; 78452; 80053; 80061; 81001; 84443; 84484; 85025; 87086; 87186; 93005; 93017; 93306; 93880; 96374; 96376; 99406; A9500; J0696; J7030; 99285-25